=== PATIENT | male | born 1985 | race Caucasian/White ===

== ENCOUNTER 2022-07-08 19:36 | Observation (INO) | payer BC, MEDICAID ==
[2022-07-08] MEDS ORDERED: Sodium Chloride 0.9% 10 ML Syringe FLUSH PRN (19:40)
[2022-07-08] MEDS ORDERED: Ketorolac 30 MG/ML SDV IVPUSH ONE (19:44)
[2022-07-08] MEDS ORDERED: Sodium Chloride 0.9% 1,000 ML IV SCH (19:45)
[2022-07-08 20:18] LABS: ESTIMATED GFR 100 mL/min (>60)
[2022-07-08] MEDS ORDERED: Iopamidol 755 MG/ML 150 ML Bottle IV ONE (20:18)
[2022-07-08] MEDS ORDERED: Ondansetron 4 MG/2 ML SDV IV PRN (21:12)
[2022-07-08] MEDS ORDERED: Morphine 2 MG/ML SYRINGE IVPUSH PRN (21:12)
[2022-07-08] MEDS: Sodium Chloride 0.9% 1,000 ML IV SCH (22:00)
[2022-07-08] MEDS: Piperacillin/Tazobactam 3.375 GM in Sodium Chloride 0.9% 50 ML IV SCH (22:01)
[2022-07-09] MEDS: Piperacillin/Tazobactam 3.375 GM in Sodium Chloride 0.9% 50 ML IV SCH ×4 (03:31→21:32)
[2022-07-09] MEDS: Sodium Chloride 0.9% 1,000 ML IV SCH ×2 (07:17→16:01)
[2022-07-09 07:30] LABS: ESTIMATED GFR 114 mL/min (>60)
[2022-07-09] MEDS ORDERED: Saccharomyces Boulardii (Probiotic) 250 MG Cap PO SCH (09:00)
[2022-07-09] MEDS: Ketorolac 30 MG/ML SDV IVPUSH PRN ×2 (09:34→21:27)
[2022-07-09] MEDS ORDERED: LORazepam 0.5 MG Tab PO PRN (09:48)
[2022-07-10] MEDS: Sodium Chloride 0.9% 1,000 ML IV SCH ×2 (00:18→07:33)
[2022-07-10] MEDS: Piperacillin/Tazobactam 3.375 GM in Sodium Chloride 0.9% 50 ML IV SCH (03:41)
[2022-07-10] MEDS: Ketorolac 30 MG/ML SDV IVPUSH PRN (07:35)
== END 2022-07-10 09:28 | disposition home or self-care (01) ==
LOC: FB.ED 19:36 → FB.MS 21:31
PROVIDERS: ADMIT Family Medicine; ATTEND Student in an Organized Health Care Education/Training Program
DX: K35.80 Unspecified acute appendicitis (principal); I10 Essential (primary) hypertension; F41.9 Anxiety disorder, unspecified; F32.A Depression, unspecified; F17.210 Nicotine dependence, cigarettes, uncomplicated; E66.01 Morbid (severe) obesity due to excess calories; Z68.30 Body mass index [BMI] 30.0-30.9, adult; Z86.16 Personal history of COVID-19; Z86.718 Personal history of other venous thrombosis and embolism; Z79.01 Long term (current) use of anticoagulants; Z90.09 Acquired absence of other part of head and neck; Z98.890 Other specified postprocedural states; Z79.899 Other long term (current) drug therapy
CPT/HCPCS: 36415; 74177; 80048; 80053; 81001; 83605; 85025; 86140; 96361; 96365; 96366; 96374; 96375; 96376; 99285-25; G0378; J1885; J2543; J3490; J7030; Q9967

== ENCOUNTER 2023-06-19 15:20 | Emergency (ER) | payer BC, MEDICAID ==
[2023-06-19] MEDS ORDERED: Acetaminophen/HYDROcodone 325-5 MG Tab PO STA (15:49)
== END 2023-06-19 17:50 | disposition home or self-care (01) ==
LOC: FB.ED 15:20
DX: S60.212A Contusion of left wrist, initial encounter (principal); I10 Essential (primary) hypertension; E66.9 Obesity, unspecified; Z68.41 Body mass index [BMI] 40.0-44.9, adult; Z86.16 Personal history of COVID-19; F17.210 Nicotine dependence, cigarettes, uncomplicated; W18.39XA Other fall on same level, initial encounter
CPT/HCPCS: 73110; 73130; 99283; A9270

== ENCOUNTER 2024-07-24 10:12 | Emergency (ER) | payer BC, MEDICAID | END 2024-07-24 12:12 | disposition home or self-care (01) | LOC: FB.ED 10:12 | DX: S06.0X0A Concussion without loss of consciousness, initial encounter (principal); S16.1XXA Strain of muscle, fascia and tendon at neck level, initial encounter; I10 Essential (primary) hypertension; E66.9 Obesity, unspecified; F17.210 Nicotine dependence, cigarettes, uncomplicated; Z86.16 Personal history of COVID-19; Z90.89 Acquired absence of other organs; W00.0XXA Fall on same level due to ice and snow, initial encounter | CPT/HCPCS: 70450; 72125; 99284 ==

== ENCOUNTER 2025-02-08 15:09 | Emergency (ER) | payer MEDICAID ==
[2025-02-08] MEDS ORDERED: Sodium Chloride 0.9% 10 ML Syringe FLUSH PRN (15:19)
[2025-02-08 15:39] LABS: BASOPHILS ABSOLUTE AUTO 0.0 x10-3/uL (0.0-0.3); BASOPHILS PERCENT AUTO 0.5 % (0.3-3.8); EOSINOPHILS ABSOLUTE AUTO 0.2 x10-3/uL (0.0-0.6); EOSINOPHILS PERCENT AUTO 3.0 % (0.1-6.8); LYMPHOCYTES ABSOLUTE AUTO 2.3 x10-3/uL (0.5-4.5); LYMPHOCYTES PERCENT AUTO 30.8 % (15.8-45.3); MEAN PLATELET VOLUME 9.0 fL (6.7-11.0); MONOCYTES ABSOLUTE AUTO 0.5 x10-3/uL (0.0-1.2); MONOCYTES PERCENT AUTO 6.5 % (5.5-15.2); NEUTROPHILS ABSOLUTE AUTO 4.4 x10-3/uL (1.7-6.9); NEUTROPHILS PERCENT AUTO 59.2 % (40.3-71.8); PLATELET COUNT,PLT 217 x10(3)uL (117-477); RED BLOOD CELL COUNT 4.97 x10(6)uL (3.90-5.90); RED CELL DISTRIBUTION WIDTH 13.7 % (12.4-15.0); WHITE BLOOD CELL COUNT,WBC 7.4 x10-3/uL (3.2-10.1)
[2025-02-08 15:45] LABS: BLOOD UREA NITROGEN,BUN 8 mg/dL (7-18); CARBON DIOXIDE,CO2 28 mmol/L (21-32); CHLORIDE,CL 102 mmol/L (100-110); CREATININE 1.0 mg/dL (0.70-1.30); ESTIMATED GFR 99 mL/min (>60); GLUCOSE RANDOM 91 mg/dL (80-116); POTASSIUM,K 4.3 mmol/L (3.5-5.3); SODIUM,NA 136 mmol/L (135-145)
[2025-02-08 15:48] LABS: INR 1.93 (1.00-1.24)
[2025-02-08 15:50] LABS: LACTIC ACID 1.1 mmol/L (0.4-2.0)
[2025-02-08 15:51] LABS: A/G RATIO 1.0; ALANINE AMINOTRANSFERASE,ALT 18 U/L (12-36); ASPARTATE AMNIOTRANSFERASE,AST 21 IU/L (5-25); BILIRUBIN TOTAL 0.5 mg/dL (0.1-1.3); PROTEIN TOTAL,TP 7.2 g/dL (6.0-8.0)
== END 2025-02-08 16:51 | disposition home or self-care (01) ==
LOC: FB.ED 15:09
DX: R07.89 Other chest pain (principal); I10 Essential (primary) hypertension; E66.9 Obesity, unspecified; F17.210 Nicotine dependence, cigarettes, uncomplicated; Z86.16 Personal history of COVID-19; Z68.43 Body mass index [BMI] 50.0-59.9, adult
CPT/HCPCS: 36415; 71045; 80053; 83605; 83735; 84484; 85025; 85610; 86140; 93005; 93010; 96360; 99283; 99285-25; J7030

== ENCOUNTER 2025-02-23 14:27 | Emergency (ER) | payer MEDICAID ==
[2025-02-23 15:12] LABS: BASOPHILS ABSOLUTE AUTO 0.0 x10-3/uL (0.0-0.3); BASOPHILS PERCENT AUTO 0.3 % (0.3-3.8); EOSINOPHILS ABSOLUTE AUTO 0.3 x10-3/uL (0.0-0.6); EOSINOPHILS PERCENT AUTO 3.1 % (0.1-6.8); LYMPHOCYTES ABSOLUTE AUTO 2.1 x10-3/uL (0.5-4.5); LYMPHOCYTES PERCENT AUTO 25.9 % (15.8-45.3); MEAN PLATELET VOLUME 9.2 fL (6.7-11.0); MONOCYTES ABSOLUTE AUTO 0.5 x10-3/uL (0.0-1.2); MONOCYTES PERCENT AUTO 6.1 % (5.5-15.2); NEUTROPHILS ABSOLUTE AUTO 5.3 x10-3/uL (1.7-6.9); NEUTROPHILS PERCENT AUTO 64.6 % (40.3-71.8); PLATELET COUNT,PLT 238 x10(3)uL (117-477); RED BLOOD CELL COUNT 5.37 x10(6)uL (3.90-5.90); RED CELL DISTRIBUTION WIDTH 13.5 % (12.4-15.0); WHITE BLOOD CELL COUNT,WBC 8.2 x10-3/uL (3.2-10.1)
[2025-02-23 15:16] LABS: BLOOD UREA NITROGEN,BUN 13 mg/dL (7-18); CARBON DIOXIDE,CO2 26 mmol/L (21-32); CHLORIDE,CL 103 mmol/L (100-110); CREATININE 0.9 mg/dL (0.70-1.30); EST CRCL DRUG DOSING (CG) 125.77 mL/min; ESTIMATED GFR 112 mL/min (>60); GLUCOSE RANDOM 107 mg/dL (80-116); POTASSIUM,K 4.3 mmol/L (3.5-5.3); SODIUM,NA 138 mmol/L (135-145)
== END 2025-02-23 16:33 | disposition home or self-care (01) ==
LOC: FB.ED 14:27
DX: R40.4 Transient alteration of awareness (principal); I10 Essential (primary) hypertension; E66.9 Obesity, unspecified; F17.200 Nicotine dependence, unspecified, uncomplicated; Z68.43 Body mass index [BMI] 50.0-59.9, adult
CPT/HCPCS: 70450; 80048; 84484; 85025; 93010; 99284; 99285

== ENCOUNTER 2025-04-23 18:31 | Emergency (ER) | payer MEDICAID ==
[2025-04-23 19:43] LABS: INR 1.82 (1.00-1.24)
== END 2025-04-23 22:17 | disposition home or self-care (01) ==
LOC: FB.ED 18:31
DX: S93.402A Sprain of unspecified ligament of left ankle, initial encounter (principal); I10 Essential (primary) hypertension; R79.1 Abnormal coagulation profile; F17.200 Nicotine dependence, unspecified, uncomplicated; Z79.899 Other long term (current) drug therapy; Z86.16 Personal history of COVID-19; W18.39XA Other fall on same level, initial encounter; Y93.89 Activity, other specified
CPT/HCPCS: 36415; 73610-LT; 73630-LT; 85610; 99283; A9270-GY